=== PATIENT | female | born 1950 ===

== ENCOUNTER 2018-03-04 05:46 | Day surgery (SDC) | payer OTHER ==
[~2018-03-04 05:46] MED LIST: ALPRAZOLAM OD0.25 MG PO; ALPRAZOLAM0.25 MG PO; AMLODIPINE BESY10 MG PO; ATORVASTATIN CA20 MG PO; CIPRO500 MG PO; COD LIVER OIL1 EACH PO; COZAAR100 MG PO; GLIMEPIRIDE1 MG PO; GLIMEPIRIDE2 MG PO; INTESTINEX1 CA1 PO; LEVOTHROID50 MCG PO; METFORMIN HCL500 MG PO; METOPROLOL SUCC50 MG PO; RESTORIL30 M1 PO; SYNTHROID75 MCG PO; TIZANIDINE HCL2 M1 PO; ULTRACET PO
[2018-03-04] MEDS ORDERED: ULTRACET PO (08:21)
== END 2018-03-04 09:30 | disposition home or self-care (01) ==
LOC: CIR.AMB 05:46 → AMB-ENDOS 15:59 → CIR.AMB 15:59
DX: C18.0 Malignant neoplasm of cecum (principal)